=== PATIENT | male | born 1970 | race African-American/Black ===

== ENCOUNTER 2016-09-21 11:00 | Inpatient (IN) | payer OTHER ==
--- NOTE | ~2016-09-21 | PN ---
Unit #: [id number] #: [id number] Patient: VIRI BLACKWOOD [id number] [facility] [address] [place] [address] [id number] MR#: [id number] NAME: VIRI BLACKWOOD ROOM: [facility] Age: 46 Sex: M Admission Date: 09/21/2016 : 1970 Attending Physician: Trey Lopez M.D. Admitting Physician: Trey Lopez M.D. Primary Care Physician: Generic Doctor Not In System [facility] PROGRESS NOTES DATE 09/23/2016 DISCUSSION Viri continues to have active detox symptoms today. His mood remains irritable with a congruent affect. He is alert and fully oriented with no psychosis. ASSESSMENT Alcohol dependence. PLAN Continue detox protocol. Dictated by... Trey Lopez M.D. [facility]/bzg TD: 09/27/2016 07:15 JOB #: [id number] [facility] PROGRESS NOTES Page 1 of 1 X Trey Lopez MD X PROGRESS NOTE
--- NOTE | ~2016-09-21 | PN ---
Unit #: [id number] #: [id number] Patient: VIRI BLACKWOOD [id number] [facility] [address] [place] [address] [id number] I MR#: [id number] NAME: VIRI BLACKWOOD ROOM: [facility] Age: 46 Sex: M Admission Date: 09/21/2016 : 1970 Attending Physician: Trey Lopez M.D. Admitting Physician: Trey Lopez M.D. Primary Care Physician: Generic Doctor Not In System [facility] PROGRESS NOTES DATE 09/24/2016 DISCUSSION Viri continues to have szzq-ap-smmxqgni detox symptoms today. His mood remains irritable with a decreased range of affect. He is alert and fully oriented. His memory concentration are fair. His thought processes are goal directed with no psychosis. He continues to deny suicidal ideation, intent, or plan. ASSESSMENT 1. Alcohol dependence. 2. Amphetamine abuse. PLAN Anticipate discharge tomorrow with followup through the community. Dictated by... Jasson GellerH/avel TD: 09/27/2016 07:16 JOB #: [id number] [facility] PROGRESS NOTES Page 1 of 1 X Trey Lopez MD X PROGRESS NOTE
--- NOTE | ~2016-09-21 | DS ---
Unit #: [id number] #: [id number] Patient: VIRI BLACKWOOD [id number] [facility] [address] [place] [address] [id number] I MR#: [id number] NAME: VIRI BLACKWOOD ROOM: [facility] Age: 46 Sex: M Admission Date: 09/21/2016 : 1970 Discharge Date: 09/25/2016 Attending Physician: Trey Lopez M.D. Primary Care Physician: Generic Doctor Not In System DISCHARGE SUMMARY REASON FOR ADMISSION Viri is a 46-year-old man who reports using excessive amounts of alcohol in addition to using methamphetamine and cocaine. He had no suicidal ideation, intent, or plan, but felt hopeless and helpless in the outpatient setting and was admitted for detox. DIAGNOSTIC STUDIES LABORATORY RESULTS: Please see hospital chart. HOSPITAL COURSE Viri was admitted and placed on the alcohol detox protocol. He had no suicidal ideation at the time of admission or throughout his hospitalization. He participated appropriately in unit groups and activities. He considered fdc house placement, but eventually decided to return to live with his family and pursue treatment through the intensive outpatient program at this facility. He was discharged in stable condition. DISCHARGE DIAGNOSES AXIS I: Alcohol dependence with withdrawal, uncomplicated; amphetamine abuse; cocaine abuse. AXIS II: No diagnosis. AXIS III: Polysubstance withdrawal, resolved. AXIS IV: AXIS V: DISCHARGE INSTRUCTIONS Follow up with the CD-IOP at this facility. DISCHARGE MEDICATIONS None. CONDITION AT DISCHARGE Improved. PROGNOSIS Fair to good. DIET AND ACTIVITY Ad dre. Unit #: [id number] #: [id number] Patient: VIRI BLACKWOOD Dictated by... Trey Lopez M.D. [facility]/luis e TD: 09/26/2016 12:47 JOB #: [id number] DISCHARGE SUMMARY Page 1 of 1 X Trey Lopez MD X DISCHARGE SUMMARY
--- NOTE | ~2016-09-21 | HP ---
Unit #: [id number] #: [id number] Patient: VIRI BLACKWOOD [id number] [place] [address] [id number] I MR#: [id number] NAME: VIRI BLACKWOOD ROOM: 76 Age: 46 Sex: M Admission Date: 09/21/2016 : 1970 Attending Physician: Trey Lopez M.D. Admitting Physician: Trey Lopez M.D. Primary Care Physician: Generic Doctor Not In System HISTORY AND PHYSICAL HISTORY OF PRESENT ILLNESS The patient is a 46-year-old male, admitted to [facility] on 09/21/2016, for drug and alcohol abuse. PAST MEDICAL HISTORY The patient denied. PAST SURGICAL HISTORY The patient denied. ALLERGIES No known drug allergies. SOCIAL HISTORY The patient is unemployed. He smokes one pack of cigarettes daily. He uses alcohol, marijuana, cocaine, and methamphetamines on a daily basis. FAMILY MEDICAL HISTORY Noncontributory. REVIEW OF SYSTEMS CONSTITUTIONAL: No fever or chills. HEENT: Denies any sore throat, ear pain or runny nose. CARDIOVASCULAR: Denies chest pain, irregular heart rhythm or palpitations. CHEST: Denies shortness of breath or cough. No hemoptysis. GASTROINTESTINAL: Denies nausea, vomiting, diarrhea or chronic constipation. ENDOCRINE: Denies history of increased thirst or urination. No recent significant weight loss or gain. GENITOURINARY: Denies dysuria, frequency, or hematuria. SKIN: Denies any rashes. HEMATOLOGIC: Denies history of increased bleeding or bruising. MUSCULOSKELETAL: Denies any hot, swollen joints. No generalized muscle pain. NEUROLOGIC: Denies problems with vision or speech. No frequent, severe headaches. No numbness, tingling or weakness in any extremities. Denies loss of bladder or bowel control. CURRENT MEDICATIONS The patient is not on any home medications. PHYSICAL EXAMINATION GENERAL: He is awake, alert, oriented, and in no acute distress. Unit #: [id number] #: [id number] Patient: VIRI BLACKWOOD VITAL SIGNS: Temperature 98.9, heart rate 113, respirations 20, and blood pressure 170/106. HEIGHT: 5 feet 6 inches. WEIGHT: 168 pounds. SKIN: Warm and dry without rash or lesion. HEENT: Normocephalic. TMs not viewed. Oral and nasal passages clear. Conjunctivae clear. PERRLA. EOMs intact. NECK: Supple without lymphadenopathy or thyromegaly. HEART: Regular rate and rhythm without murmur. LUNGS: Clear. ABDOMEN: Soft, nontender. : Not done. EXTREMITIES: No evidence of cyanosis, clubbing or edema. Moves all without focal deficit. NEUROLOGICAL: Grossly within normal limits. Cranial Nerves: II: Visual garcia are intact. III, IV AND : Extraocular movements are intact. Pupils are equal, round and reactive to light. V: Facial sensation is grossly normal. VII: Facial movements and expression are normal. VIII: Auditory acuity grossly intact. IX, X: Uvula is midline. Phonation is normal. XI: Patient shrugs shoulders and turns head normally. XII: Tongue protrudes in the midline. Sensory and Motor Function: Sensory and motor sensation is grossly normal. Motor: moves all extremities well. Coordination: Gait is normal. Deep Tendon Reflexes: Intact. IMPRESSION 1. Psychiatric admission. 2. Nicotine dependence. 3. Polysubstance abuse. RECOMMENDATIONS Psychiatric, per psychiatrist. MEDICAL No contraindications to participating in facility's activities. MEDICAL PROGNOSIS Good. MEDICAL CONDITION Stable. Dictated by... Barrie Lambert TD: 09/23/2016 05:13 JOB #: [id number] Unit #: [id number] #: [id number] Patient: VIRI BLACKWOOD HISTORY AND PHYSICAL Page 1 of 1 X MORGAN VELAZQUEZ APRN HISTORY AND PHYSICAL
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
[2016-09-22 12:19] LABS: BASOPHIL% 0.7 % (0-2.5); EOSINOPHIL# 0.1 X10e3 (0-0.7); EOSINOPHIL% 1.9 % (0.0-7.0); HEMOGLOBIN 14.5 gm/dL (13.0-16.0); LYMPHOCYTE# 2.3 X10e3 (1.0-3.5); LYMPHOCYTE% 45.6 % (17.0-45.0); MEAN CELL VOLUME 90.6 FL (83-96); MEAN CORPUSCULAR HEMOGLOBIN 29.2 PG (28-34); MEAN CORPUSCULAR HGB CONC 32.2 g/dL (30-36); MEAN PLATELET VOLUME 10.7 FL (6.5-11.5); MONOCYTE# 0.6 X10e3 (0-1.0); NEUTROPHIL# 1.9 X10e3 (1.5-7.1); NEUTROPHIL% 38.8 % (40-75); PLATELET COUNT 169 X10e3 (140-420); RED BLOOD COUNT 4.97 X10e (3.90-5.60)
[2016-09-22 12:21] LABS: DIFF IND NO
[2016-09-22 12:56] LABS: ALBUMIN SERUM 3.8 g/dL (3.5-5.0); BILIRUBIN,TOTAL 1.8 mg/dL (0.2-2.0); BUN/CREATININE RATIO 14.44; CALCIUM SERUM 8.9 mg/dL (8.4-10.2); CREATININE SERUM 0.9 mg/dL (0.6-1.4); GLOM FILT RATE Estimated 119.1 mL/min (>60); POTASSIUM 3.6 mmol/L (3.5-5.1); PROTEIN TOTAL SERUM 7.1 g/dL (6.0-8.3)
== END 2016-09-25 12:00 | DRG 897 ==
LOC: P1E 13:27
PROVIDERS: Psychiatry & Neurology Psychiatry
PROC: HZ2ZZZZ Detoxification Services for Substance Abuse Treatment (ICD-10-PCS; principal; 2016-09-21)
DX: F10.239 Alcohol dependence with withdrawal, unspecified (principal); F14.10 Cocaine abuse, uncomplicated; F15.10 Other stimulant abuse, uncomplicated; F17.210 Nicotine dependence, cigarettes, uncomplicated
CPT/HCPCS: 80053; 85025; 86592

== ENCOUNTER 2017-01-12 10:00 | Inpatient (IN) | payer OTHER ==
[~2017-01-12] VITALS: Ht 167.6 cm; Wt 77.1 kg
--- NOTE | ~2017-01-12 | DS ---
Unit #: [id number] #: [id number] Patient: VIRI BLACKWOOD [id number] [place] [address] [id number] MR#: [id number] NAME: VIRI BLACKWOOD. ROOM: P207 Age: 46 Sex: M Admission Date: 01/12/2017 : 1970 Discharge Date: 01/15/2017 Attending Physician: Trey Lopez M.D. Primary Care Physician: Dayday Bustillos M.D. DISCHARGE SUMMARY REASON FOR ADMISSION Mr. Blackwood is a 46-year-old man, who came in reporting a history of alcoholism with ongoing detox symptomatology. He had also been using marijuana, methamphetamines, and cocaine. He said that he was "tired of living this way," but denied suicidal ideation and was admitted for detox. DIAGNOSTIC STUDIES LABORATORY RESULTS: Please see hospital chart. HOSPITAL COURSE The patient was admitted and placed on the alcohol detox protocol with the addition of Neurontin for opioid detox symptoms and trazodone for insomnia. He was able to obtain placement at [facility] facility for 28-day programing and was discharged in stable condition to their care. DISCHARGE DIAGNOSES AXIS I: Alcohol dependence with withdrawal, uncomplicated and opioid dependence. AXIS II: No diagnosis. AXIS III: High blood sugar, unclear diagnosis. AXIS IV: AXIS V: DISCHARGE INSTRUCTIONS Follow up with [facility] and recommend primary care evaluation of the patient's high blood sugar at the time of admission. DISCHARGE MEDICATIONS None. CONDITION AT DISCHARGE Improved. PROGNOSIS Fair to good. DIET AND ACTIVITY Ad dre. Dictated by... Trey Lopez M.D. Unit #: [id number] #: [id number] Patient: VIRI BLACKWOOD MRH/modl TD: 01/15/2017 12:51 JOB #: [id number] DISCHARGE SUMMARY Page 1 of 1 X Trey Lopez MD X DISCHARGE SUMMARY
--- NOTE | ~2017-01-12 | HP ---
Unit #: [id number] #: [id number] Patient: VIRI BLACKWOOD [id number] [place] [address] [id number] MR#: [id number] NAME: VIRI BLACKWOOD. ROOM: P207 Age: 46 Sex: M Admission Date: 01/12/2017 : 1970 Attending Physician: Trey Lopez M.D. Admitting Physician: Trey Lopez M.D. Primary Care Physician: Dayday Bustillos M.D. HISTORY AND PHYSICAL HISTORY OF PRESENT ILLNESS Viri is a 46 year old admitted to [address] [place] [address] because of his continued polysubstance abuse which includes alcohol, cocaine, methamphetamine and pain pills. PAST MEDICAL HISTORY Long history of illicit substance abuse. PAST SURGICAL HISTORY Nothing reported. ALLERGIES No known drug allergies. SOCIAL HISTORY Smokes one pack per day. Drinks alcohol daily. Has a long history of illicit substance abuse. FAMILY HISTORY Medically noncontributory. REVIEW OF SYSTEMS CONSTITUTIONAL: No fever or chills. HEENT: Denies any sore throat, ear pain or runny nose. CARDIOVASCULAR: Denies chest pain, irregular heart rhythm or palpitations. CHEST: Denies shortness of breath or cough. No hemoptysis. GASTROINTESTINAL: Denies nausea, vomiting, diarrhea or chronic constipation. ENDOCRINE: Denies history of increased thirst or urination. No recent significant weight loss or gain. GENITOURINARY: Denies dysuria, frequency, or hematuria. SKIN: Denies any rashes. HEMATOLOGIC: Denies history of increased bleeding or bruising. MUSCULOSKELETAL: Denies any hot, swollen joints. No generalized muscle pain. NEUROLOGIC: Denies problems with vision or speech. No frequent, severe headaches. No numbness, tingling or weakness in any extremities. Denies loss of bladder or bowel control. CURRENT MEDICATIONS Detox protocol. PHYSICAL EXAMINATION Unit #: [id number] #: [id number] Patient: VIRI BLACKWOOD GENERAL: Alert, well-nourished, in no apparent distress. VITAL SIGNS: Blood pressure 146/100, heart rate 80, respirations 16, temperature 98.6. WEIGHT: 170. HEIGHT: 5 foot 6 inches. SKIN: Warm and dry without rash or lesion. HEENT: Normocephalic. TMs not viewed. Oral and nasal passages clear. Conjunctivae clear. Pupils equal, round and reactive to light and accommodation. Extraocular movements intact. NECK: Supple without lymphadenopathy or thyromegaly. HEART: Regular rate and rhythm without murmur. LUNGS: Clear. ABDOMEN: Soft, nontender. : Not done. EXTREMITIES: No evidence of cyanosis, clubbing or edema. Moves all extremities without focal deficit. NEUROLOGICAL: Grossly within normal limits. Cranial Nerves: II: Visual garcia are intact. III, IV AND : Extraocular movements are intact. Pupils are equal, round and reactive to light. V: Facial sensation is grossly normal. VII: Facial movements and expression are normal. VIII: Auditory acuity grossly intact. IX, X: Uvula is midline. Phonation is normal. XI: Patient shrugs shoulders and turns head normally. XII: Tongue protrudes in the midline. Sensory and Motor Function: Sensory and motor sensation is grossly normal. Motor: moves all extremities well. Coordination: Gait is normal. Deep Tendon Reflexes: Intact. IMPRESSION Psychiatric admission. RECOMMENDATIONS PSYCHIATRIC: Per psychiatrist. MEDICAL: 1. I see no contraindications to participating in facility's activities. 2. Detox per protocol. MEDICAL PROGNOSIS Good. MEDICAL CONDITION Stable. Dictated by... Teresa Burton PReyARey-Cameron. for Jasson Pinzon/earl TD: 01/13/2017 22:25 JOB #: [id number] Unit #: [id number] #: [id number] Patient: VIRI BLACKWOOD HISTORY AND PHYSICAL Page 1 of 1 X Teresa Burton HISTORY AND PHYSICAL
--- NOTE | ~2017-01-12 | PN ---
Unit #: [id number] #: [id number] Patient: VIRI BLACKWOOD [id number] [facility] [address] [place] [address] [id number] I MR#: [id number] NAME: VIRI BLACKWOOD. ROOM: P207 Age: 46 Sex: M Admission Date: 01/12/2017 : 1970 Attending Physician: Trey Lopez M.D. Admitting Physician: Trey Lopez M.D. Primary Care Physician: Jasson Bray PROGRESS NOTES DATE OF SERVICE: 01/14/2017 DISCUSSION Viri has moderate to mild detox symptoms today. His mood is a little depressed with a brighter affect. He is alert and fully oriented with no psychosis and no active SI. His blood sugar is elevated at 266, but he denies ever being diagnosed or evaluated for diabetes. He has apparently been accepted to a chemical dependency long-term program beginning tomorrow. ASSESSMENT Alcohol dependence and opioid dependence. PLAN We will continue with our current treatment plan, anticipating discharge tomorrow. We will recommend that the patient to follow up with the primary care physician for possible evaluation of blood sugar problems. Dictated by... Jasson GellerH/luis e TD: 01/14/2017 17:32 JOB #: [id number] [facility] PROGRESS NOTES Page 1 of 1 X Trey Lopez MD X PROGRESS NOTE
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
[2017-01-13 12:44] LABS: BASOPHIL% 0.9 % (0-2.5); EOSINOPHIL# 0.1 X10e3 (0-0.7); EOSINOPHIL% 1.6 % (0.0-7.0); HEMATOCRIT 40.6 % (38.0-50.0); HEMOGLOBIN 13.4 gm/dL (13.0-16.0); LYMPHOCYTE# 1.5 X10e3 (1.0-3.5); LYMPHOCYTE% 32.2 % (17.0-45.0); MEAN CELL VOLUME 89.2 FL (83-96); MEAN CORPUSCULAR HEMOGLOBIN 29.5 PG (28-34); MEAN PLATELET VOLUME 9.8 FL (6.5-11.5); MONOCYTE# 0.5 X10e3 (0-1.0); MONOCYTE% 9.7 % (3.0-12.0); NEUTROPHIL# 2.6 X10e3 (1.5-7.1); NEUTROPHIL% 55.6 % (40-75); PLATELET COUNT 166 X10e3 (140-420); RED BLOOD COUNT 4.55 X10e (3.90-5.60); RED CELL DISTRIBUTION WIDTH 14.8 % (11.0-15.5); WHITE BLOOD COUNT 4.7 X10e3 (4.0-10.5)
[2017-01-13 12:57] LABS: DIFF IND NO
[2017-01-13 13:04] LABS: ALBUMIN SERUM 3.5 g/dL (3.5-5.0); BILIRUBIN,TOTAL 0.8 mg/dL (0.2-2.0); BUN/CREATININE RATIO 16.66; CALCIUM SERUM 8.9 mg/dL (8.4-10.2); CREATININE SERUM 0.9 mg/dL (0.6-1.4); GLOM FILT RATE Estimated 119.1 mL/min (>60); PROTEIN TOTAL SERUM 6.2 g/dL (6.0-8.3)
== END 2017-01-15 11:50 | DRG 897 ==
LOC: P2S 13:07
PROVIDERS: Psychiatry & Neurology Psychiatry
PROC: HZ2ZZZZ Detoxification Services for Substance Abuse Treatment (ICD-10-PCS; principal; 2017-01-12)
DX: F10.230 Alcohol dependence with withdrawal, uncomplicated (principal); F11.20 Opioid dependence, uncomplicated; F14.10 Cocaine abuse, uncomplicated; R73.9 Hyperglycemia, unspecified
CPT/HCPCS: 80053; 85025; 86592; J3411